=== PATIENT | female | born 1950 | race Caucasian/White ===

== ENCOUNTER 2019-04-18 17:29 | Emergency (ER) | payer MEDICARE ==
[~2019-04-18] VITALS: Ht 160 cm; Wt 43.6 kg
[2019-04-18] MEDS ORDERED: CITALOPRAM HBR10 MG PO (18:35)
[2019-04-18] MEDS ORDERED: FOLIC ACID1 MG PO (18:35)
[2019-04-18] MEDS ORDERED: KEPPRA250 MG PO (18:36)
[2019-04-18] MEDS ORDERED: KEPPRA1000 MG PO (18:36)
[2019-04-18] MEDS ORDERED: METOPROLOL SUCC25 M1 PO (18:37)
[2019-04-18] MEDS ORDERED: MULTIVITAMIN1 SGL PO (18:38)
[2019-04-18] MEDS ORDERED: NATURE'S BLEND500 M5 PO (18:38)
[2019-04-18] MEDS ORDERED: ROSUVASTATIN CAL5 MG PO (18:38)
[2019-04-18 18:52] LABS: EOS % 0.8 % (1.0-5.0); HEMATOCRIT 38.2 % (37.0-47.0); HEMOGLOBIN 12.4 g/dL (12.5-16.0); MEAN CELL VOLUME 99 fl (78-100); MEAN CORPUSCULAR HEMOGLOBIN 32 pg (27-31); MEAN CORPUSCULAR HGB CONC 33 g/dL (33-37); MEAN PLATELET VOLUME 9.4 fl (7.4-10.4); MONO # 0.2 (0.20-0.80); NEU # 2.8 (1.40-6.50); PLATELET COUNT 188 K/mm3 (130-400); RED BLOOD COUNT 3.88 M/mm3 (4.10-5.30); RED CELL DISTRIBUTION WIDTH 12.1 % (11.5-14.5); WHITE BLOOD COUNT 3.7 K/mm3 (4.8-10.8)
[2019-04-18 19:00] LABS: LYMPH# 0.6 (1.50-4.00)
[2019-04-18 19:09] LABS: ALBUMIN 4.1 g/dL (3.4-4.8); POTASSIUM 4.2 mmol/L (3.5-5.1)
[2019-04-18 19:11] LABS: CALCIUM 9.5 mg/dL (8.3-10.5)
[2019-04-18 19:12] LABS: TOTAL PROTEIN 6.4 g/dL (6.2-8.1)
[2019-04-18 19:14] LABS: TOTAL BILIRUBIN 0.7 mg/dL (0.2-1.2)
[2019-04-18 21:35] VITALS: BP 117/65
== END 2019-04-18 21:35 | disposition short-term general hospital (02) ==
LOC: ED 17:29
PROVIDERS: Physician Assistant
DX: G40.909 Epilepsy, unspecified, not intractable, without status epilepticus (principal); I10 Essential (primary) hypertension; E78.5 Hyperlipidemia, unspecified; F41.9 Anxiety disorder, unspecified
CPT/HCPCS: J1953; J7030